=== PATIENT | female | born 1965 | race Caucasian/White ===

== ENCOUNTER → 2017-03-23 | Day surgery (SDC) | payer OTHER ==
[2008-02-04 03:48] VITALS: BP 156/88
[~2017-03-23] MED LIST: ABILIFY20 MG PO; BELSOMRA PO; DIVIGEL EXT; EXCEDRIN MIGRAI1 TAB PO; LAMICTAL200 MG PO; LEVOTHYROXIN0.025 MG PO; LEVOTHYROXIN0.075 MG PO; LITHIUM CARBON450 MG PO; MYRBETRIQ25 MG PO; NUVIGIL150 MG PO; PAROXETINE20 MG PO; PERCOCET 325 MG1 TA2 PO; [UNRECOGNIZED DRUG - OTHER] EXT
--- NOTE | 2017-03-23 16:12 | Operative Report ---
Operative/Inv Procedure Report Surgery Date: 03/23/17 Name of Procedure: interstim lead and battery removal Pre-Operative Diagnosis: nonfunctioning interstim Post-Operative Diagnosis: same Estimated Blood Loss: scant Surgeon/Hand Sole Sewer: NEO PHIPPS MD Anesthesia: local monitored anesthesi Specimens: interstim battery and lead in its entirety Complications: none Condition: stable Operative Indication: nonfunctioning interstim Operative/Procedure Note Note: This an operative dictation on patient Margaret Sanches. She was identified in the holding area and consented for InterStim removal. She understood the risks benefits and alternatives. All questions were answered. With the stressed that part of the lead might not be able to be removed in its entirety and might remain in her body. She was understanding of this. Patient was taken to the operating room placed on the operating table in the prone position. Timeout was performed. IV antibiotics were infused and IV sedation was given. She was prepped and draped in the standard sterile fashion with ChloraPrep. 2% lidocaine was infiltrated into the area of the buttock incision previously made for the InterStim implant. Incision was carried down to the InterStim battery. The battery was easily removed. The pocket was copiously irrigated with bacitracin irrigation. The lead was then pulled on and the site where the lead was initially introduced was easily identified. Incision was made with the knife here. Noemi clamp was then used to reach down into the incision. The clamp was able to grasp the lead without difficulty. This was gently pulled up and the entire lead was able to be removed without fracture. The lead was cut at the site of the battery and the 2 pieces were sent off for pathology. The incision was closed with interrupted 3-0 Vicryl suture followed by 4-0 Monocryl subcutaneous suture. Mastisol followed by Steri -Strips and Tegaderm was applied. Patient tolerated the procedure well. The sponge and needle count were correct at the end of the case. Findings: interstim removed in its entirety Discharge Disposition: Same Day Admissions
== END ==
LOC: STS 03-16 01:42
DX: T85.890A Other specified complication of nervous system prosthetic devices, implants and grafts, initial encounter (principal); R35.1 Nocturia; R32 Unspecified urinary incontinence; I12.9 Hypertensive chronic kidney disease with stage 1 through stage 4 chronic kidney disease, or unspecified chronic kidney disease; N18.3 Chronic kidney disease, stage 3 (moderate); G47.33 Obstructive sleep apnea (adult) (pediatric); E83.52 Hypercalcemia; D50.9 Iron deficiency anemia, unspecified; E03.9 Hypothyroidism, unspecified
CPT/HCPCS: J2250

== ENCOUNTER 2018-01-10 20:32 | Emergency (ER) | payer OTHER ==
[~2018-01-10] VITALS: Ht 167.6 cm; Wt 87.1 kg
--- NOTE | 2018-01-10 21:11 | ED AMS/SEIZURE/WEAK/DIZZY ---
History of Present Illness General Chief Complaint: General Adult Stated Complaint: "LOW BP" Source: patient Exam Limitations: no limitations Vital Signs & Intake/Output Vital Signs & Intake/Output Vital Signs Date Time Temp Pulse Resp B/P B/P Pulse O2 O2 Flow FiO2 Mean Ox Delivery Rate 01/10 2315 97.0 68 18 113/71 97 Room Air Room Air 01/10 2037 97.2 73 16 98/64 95 Room Air Room Air ED Intake and Output 01/11 0000 01/10 1200 Intake Total 2000 Output Total Balance 2000 Intake, IV 2000 Patient 192 lb Weight Weight Reported by Patient Measurement Method Allergies Coded Allergies: Sulfa (Sulfonamide Antibiotics) (Intermediate, RASH, SWEATS AND FEVER 10/01/17) cephalexin (From KEFLEX) (Intermediate, SEVERE VOMITING AND DIARRHEA 10/01/17) sulfamethoxazole (From BACTRIM) (RASH 01/10/18) PER PRE-OP ORDER SHEET. -CG 03/15/17 trimethoprim (From BACTRIM) (RASH 01/10/18) PER PRE-OP ORDER SHEET. -CG 03/15/17 Reconcile Medications Aripiprazole (Abilify) 15 MG TABLET 1 TAB PO QPM MENTAL HEALTH (Reported) Aripiprazole 2 MG TABLET 1 TAB PO BID MENTAL HEALTH (Reported) Cholecalciferol (Vitamin D3) (Vitamin D) (Unknown Strength) TABLET (Unknown Dose) PO DAILY SUPPLEMENT (Reported) Cyclosporine (Restasis) 0.05 % DROPERETTE 1 GTT OU BID BOTH EYES (Reported) Lamotrigine 200 MG TABLET 1 TAB PO BID MENTAL HEALTH (Reported) Levothyroxine Sodium (Synthroid) 125 MCG TABLET 1 TAB PO DAILY THYROID ( Reported) Multiple Vitamin (Multivitamins) 1 EACH TABLET 1 TAB PO DAILY SUPPLEMENT ( Reported) Solifenacin Succinate (Vesicare) 10 MG TABLET 1 TAB PO DAILY BLADDER ( Reported) Vilazodone (Viibryd) 40 MG TABLET 1 TAB PO DAILY MENTAL HEALTH (Reported) Triage Note: TRIAGE: 52 Y/O FEMALE PRESENTS S/P RECENT THYROIDECTOMY FOR THYROID NODULES. REPORTS WAS AT THE URGENT CARE FOR EVAL OF CONJUCTIVITIS AND INFORMED SHE HAD HYPOTENSION. IN TRIAGE: 98/64. Triage Nurses Notes Reviewed? yes Onset: Gradual Duration: day(s): Timing: recent history Injury Environment: home Severity: mild Modifying Factors: Improves With: rest. Associated Symptoms: weakness HPI: 52 yo woman h/o partial thyroidectomy and partical parathyroidectomy on 01/08/18, discharged yesterday, presents with weakness. "I was feeling week and tired... I haven't been eating or drinking as much... I went to the urgent care center... They said my blood pressure was low and sent me up here." She notes no chest pain, shortness of breath, dyspnea, fever, chills, wheezing. She is otherwise well. Past History Travel History Traveled to [place] past 21 day No Medical History Any Pertinent Medical History? 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 No Review of Systems Review of Systems Constitutional: Reports: no symptoms. EENTM: Reports: no symptoms. Respiratory: Reports: no symptoms. Cardiovascular: Reports: no symptoms. GI: Reports: no symptoms. Genitourinary: Reports: no symptoms. Musculoskeletal: Reports: no symptoms. Skin: Reports: no symptoms. Neurological/Psychological: Reports: no symptoms. Hematologic/Endocrine: Reports: no symptoms. Immunologic/Allergic: Reports: no symptoms. All Other Systems: Reviewed and Negative Physical Exam Physical Exam General Appearance: well developed/nourished, no apparent distress Head: atraumatic, normal appearance Eyes: Bilateral: normal appearance. Ears, Nose, Throat: normal pharynx, dry mucosa Neck: normal inspection, supple, full range of motion Respiratory: normal breath sounds, chest non-tender, no respiratory distress, quiet respiration, lungs clear Cardiovascular: regular rate/rhythm Gastrointestinal: normal bowel sounds, soft, non-tender, no organomegaly Back: normal inspection, normal range of motion Extremities: normal range of motion, evidence of injury Neurologic/Psych: no motor/sensory deficits, awake, alert, oriented x 3 Skin: intact, normal color, warm/dry Core Measures ACS in differential dx? No CVA/TIA Diagnosis No Sepsis Present: No Sepsis Focused Exam Completed? No Progress Differential Diagnosis: weakness, dehydration, hypothryoidism vs other. Plan of Care: Orders Procedure Date/time Status THYROID STIMULATING HORMONE 01/10 2110 Complete TROPONIN LEVEL 01/10 2110 Complete T3 UPTAKE (THYROXINE BIND CAP) 01/10 2110 Complete PHOSPHORUS 01/10 2110 Complete MAGNESIUM 01/10 2110 Complete LIPASE 01/10 2110 Complete HEPATIC FUNCTION PANEL 01/10 2110 Complete FREE T4 01/10 2110 Complete D-DIMER 01/10 2110 Complete CBC WITHOUT DIFFERENTIAL 01/10 2110 Complete BASIC METABOLIC PANEL 01/10 2110 Complete AMYLASE 01/10 2110 Complete EKG 01/10 2110 Active Laboratory Tests 01/10/182141: Anion Gap 10, Estimated GFR 29 L, BUN/Creatinine Ratio 18.9, Glucose 98, Calcium 10.3 H, Phosphorus 3.9, Magnesium 1.7, Total Bilirubin 0.5, Direct Bilirubin 0.5 H, AST 16, ALT 22, Alkaline Phosphatase 67, Troponin I < 0.01, Total Protein 6.4, Albumin 3.9, Amylase 50, Lipase 118, TSH 2.010, Free T4 1.07, Thyroxine Binding Indx 37.9, D-Dimer High Sensitivty 287 H, CBC w Diff NO MAN DIFF REQ, RBC 4.52, MCV 87.2, MCH 28.9, MCHC 33.2, RDW 14.4, MPV 10.7 H, Gran % 61.4, Lymphocytes % 25.4, Monocytes % 7.8, Eosinophils % 4.8, Basophils % 0.6, Absolute Granulocytes 4.8, Absolute Lymphocytes 2.0, Absolute Monocytes 0.6, Absolute Eosinophils 0.4, Absolute Basophils 0 01/10/182118: Calcium Cancelled, Phosphorus Cancelled, Magnesium Cancelled Diagnostic Imaging: Viewed by Me: Radiology Read. Discussed w/RAD: Radiology Read. CXR Impression: PATIENT: ELLE FERRARI PRESENT AGE: 52 PATIENT ACCOUNT NO: [id number] : 63 LOCATION: [facility] ORDERING PHYSICIAN: Harvey Grey MD SERVICE DATE: 01/10/18-2118 EXAM TYPE: RAD - XRY- PORTABLE CHEST XRAY EXAMINATION: XR PORTABLE CHEST CLINICAL INFORMATION: Dizziness. Presyncope. COMPARISON: None TECHNIQUE: Portable frontal view of the chest was obtained. FINDINGS: The heart is normal in size. The lungs and pleural spaces are clear. No acute osseous abnormality. IMPRESSION: No acute cardiopulmonary disease. DICTATED BY: Tj Arthur MD DATE/TIME DICTATED:01/10 ADULT BASIC EDUCATION TEACHER:DEV DATE/TIME TRANSCRIBED:01/10/182210 CONFIDENTIAL, DO NOT COPY WITHOUT APPROPRIATE AUTHORIZATION. <Electronically signed in Other Vendor System> SIGNED BY: Tj Arthur MD 01/10/182214 Initial ED EKG: v1 equivocal st seg elevation, nsr, no acute changes. Departure Departure Disposition: STILL A PATIENT Condition: Stable Clinical Impression Primary Impression: Weakness Secondary Impressions: Acute renal failure, Dehydration Referrals: Libby Quintana MD (PCP/Family) Departure Forms: Customer Survey General Discharge Information Comments 01/10/18, 23:12... pt with elevated creatinine... not eating, not drinking.... pt requested transfer back to [facility]... discussed with dr. mcdowell ([facility] hospitalist) who accepts patient. Critical Care Note Critical Care Note Critical Care Time: 30-74 min
[2018-01-10 21:51] LABS: ABSOLUTE BASOPHIL COUNT 0 /CUMM (0.0-0.2); ABSOLUTE EOSINOPHIL COUNT 0.4 /CUMM (0.0-0.7); ABSOLUTE GRANULOCYTE CT 4.8 /CUMM (1.4-6.5); ABSOLUTE MONOCYTE COUNT 0.6 /CUMM (0.10-0.60); BASOPHIL % 0.6 % (0.0-2.0); EOSINOPHIL % 4.8 % (0-5); GRANULOCYTE % 61.4 % (42.2-75.2); HEMATOCRIT 39.4 % (37-47); MEAN CORPUSCULAR HGB 28.9 PG (27.0-31.0); MEAN CORPUSCULAR HGB CONC 33.2 G/DL (33.0-37.0); MEAN CORPUSCULAR VOLUME 87.2 FL (81.0-99.0); MEAN PLATELET VOLUME 10.7 FL (7.4-10.4); PLATELET COUNT 188 /CUMM (130-400); RBC DISTRIBUTION WIDTH 14.4 % (11.5-14.5); RED BLOOD CELL CT 4.52 /CUMM (4.20-5.40); WHITE BLOOD CELL COUNT 7.8 /CUMM (4.8-10.8)
[2018-01-10] MEDS ORDERED: LAMOTRIGINE200 M2 PO (21:54)
[2018-01-10] MEDS ORDERED: VESICARE10 MG PO (21:54)
[2018-01-10] MEDS ORDERED: VIIBRYD40 M1 PO (21:54)
[2018-01-10] MEDS ORDERED: RESTASIS1 EACH OU (21:55)
[2018-01-10] MEDS ORDERED: SYNTHROID125 MCG PO (21:55)
[2018-01-10] MEDS ORDERED: ABILIFY15 M1 PO (21:55)
[2018-01-10] MEDS ORDERED: ARIPIPRAZOLE2 MG PO (21:55)
[2018-01-10] MEDS ORDERED: VITAMIN D1000 UNIT PO (21:56)
[2018-01-10] MEDS ORDERED: MULTIVITAMINS1 EAC9 PO (21:56)
--- NOTE | 2018-01-10 22:15 | RADIOLOGY REPORT ---
EXAMINATION: XR PORTABLE CHEST CLINICAL INFORMATION: Dizziness. Presyncope. COMPARISON: None TECHNIQUE: Portable frontal view of the chest was obtained. FINDINGS: The heart is normal in size. The lungs and pleural spaces are clear. No acute osseous abnormality. IMPRESSION: No acute cardiopulmonary disease.
[2018-01-10 23:15] VITALS: BP 113/71
== END 2018-01-10 23:46 | disposition short-term general hospital (02) ==
LOC: ERH 20:32
PROVIDERS: Pediatrics
DX: R53.1 Weakness (principal); N17.9 Acute kidney failure, unspecified; E86.0 Dehydration; E03.9 Hypothyroidism, unspecified
CPT/HCPCS: 71045; 93005; 93010; 96360; 99291